=== PATIENT | female | born 1940 | race Caucasian/White ===

== ENCOUNTER 2016-05-10 12:07 | Inpatient (IN) | payer MEDICARE, BC ==
[~2016-05-10] VITALS: Ht 160 cm; Wt 49.9 kg
[2016-05-10] MEDS ORDERED: IV NS 0.9% 1,000 ML BAG IV ONE (12:30)
[2016-05-10] MEDS ORDERED: MORPHINE SULFATE INJ 2 MG/ML DISP.SYRIN IV ONE ×2 (12:30→13:00)
[2016-05-10] MEDS ORDERED: ONDANSETRON HCL/PF 4 MG/2 ML VIAL IVP ONE (12:30)
[2016-05-10] MEDS ORDERED: MORPHINE SULFATE INJ 2 MG/ML DISP.SYRIN ONE (12:53)
[2016-05-10 12:54] LABS: BASOPHILS # (AUTO) 0.1 /CMM (0.0-0.2); BASOPHILS % (AUTO) 0.7 % (0.0-2.0); DIFF TOTAL % 100 %; EOSINOPHILS # (AUTO) 0.1 /CMM (0.0-0.7); EOSINOPHILS % (AUTO) 0.6 % (0.0-6.0); HEMATOCRIT 32 % (33-45); HEMOGLOBIN 10.4 g/dL (11.5-14.8); LYMPHOCYTES # (AUTO) 1.7 /CMM (0.8-4.8); LYMPHOCYTES % (AUTO) 18.8 % (20.0-44.0); MEAN CORPUSCULAR HEMOGLOBIN 34 PG (26.0-33.0); MEAN CORPUSCULAR HGB CONC 32 g/dl (31.0-36.0); MEAN CORPUSCULAR VOLUME 105 fL (82-100); MONOCYTES # (AUTO) 0.4 /CMM (0.1-1.30); MONOCYTES % (AUTO) 3.9 % (2.0-12.0); NEUTROPHILS # (AUTO) 6.8 /CMM (1.8-8.9); PLATELET COUNT (AUTO) 179 /CMM (150-450); RED BLOOD CELL COUNT(AUTO) 3.03 MIL/uL (4.0-5.2); WHITE BLOOD COUNT (AUTO) 9.1 K/uL (4.3-11.0)
[2016-05-10] MEDS ORDERED: ONDANSETRON HCL/PF 4 MG/2 ML VIAL ONE ×2 (12:54→13:39)
[2016-05-10] MEDS ORDERED: IV SET PRIMARY 1 EA INFUS.SET MC ONE (12:54)
[2016-05-10] MEDS ORDERED: IV NS 0.9% 1,000 ML ONE (12:54)
[2016-05-10] MEDS ORDERED: MORPHINE SULFATE INJ 4 MG/ML DISP.SYRIN ONE (12:54)
[2016-05-10 13:04] LABS: ANION GAP 12 (5-14); CALCIUM, SERUM 9.4 mg/dL (8.5-10.1); CARBON DIOXIDE 30 mmol/L (21-32); CHLORIDE 94 mmol/L (98-107); CREATININE 0.6 mg/dL (0.6-1.3); GLUCOSE 108 mg/dL (74-106); POTASSIUM 3.2 mmol/L (3.5-5.1); SODIUM SERUM 133 mmol/L (136-145); UREA NITROGEN, BLOOD 10 mg/dL (7-18)
[2016-05-10 13:08] LABS: INR 0.97 (0.87-1.13); PROTHROMBIN TIME 10.2 SECS (9.5-12.7)
[2016-05-10 13:09] LABS: ALANINE AMINOTRANSFERASE 23 U/L (12-78); ALBUMIN 3.6 g/dL (3.4-5.0); ASPARTATE AMINOTRANSFERASE 20 U/L (15-37); BILIRUBIN,DIRECT 0.1 mg/dL (0.0-0.2); BILIRUBIN,TOTAL 0.3 mg/dL (0.2-1.0); INDIRECT BILIRUBIN 0.2 mg/dL (0.0-1.1); TOTAL PROTEIN, SERUM 6.6 g/dL (6.4-8.2)
[2016-05-10 13:11] LABS: TROPONIN I < 0.017 ng/mL (0.00-0.056)
[2016-05-10] MEDS ORDERED: CHLO15MO2 MM (16:57)
[2016-05-10] MEDS ORDERED: RANI300T4 PO (16:57)
[2016-05-10] MEDS ORDERED: CLON1TAB4 PO (16:57)
[2016-05-10] MEDS ORDERED: LISI10TA5 PO (16:57)
[2016-05-10] MEDS ORDERED: OXYC5CAP3 PO (16:57)
[2016-05-10] MEDS ORDERED: MORP15TA PO (16:57)
[2016-05-10] MEDS ORDERED: OMEP20TA20 PO (16:57)
[2016-05-10] MEDS ORDERED: HYDR-3024 PO (16:57)
[2016-05-10] MEDS ORDERED: ALPR1TAB7 PO (16:57)
[2016-05-10] MEDS ORDERED: GEMC200V IV (16:57)
[2016-05-10] MEDS ORDERED: ACID1TAB12 PO (16:57)
[2016-05-10] MEDS ORDERED: LACT10SO7 PO (16:57)
[2016-05-10] MEDS ORDERED: LUBI24CA7 PO (16:57)
[2016-05-10] MEDS ORDERED: CARI350T PO (16:57)
[2016-05-10] MEDS ORDERED: METO-295 PO (16:57)
[2016-05-10] MEDS ORDERED: LEVO75TA7 PO (16:57)
[2016-05-10 18:33] VITALS: BP 145/75
[2016-05-10] MEDS ORDERED: Z GUARD REMEDY 2 OZ OINT TP PRN (19:30)
[2016-05-10] MEDS ORDERED: ACETAMINOPHEN 325 MG TABLET PO PRN (19:30)
[2016-05-10] MEDS ORDERED: MAG HYDROX/AL HYDROX/SIMETH 30 ML UDC PO PRN (19:30)
[2016-05-10] MEDS ORDERED: hydrOXYzine 10 MG TABLET PO PRN (19:30)
[2016-05-10] MEDS ORDERED: oxyCODONE IR immediate release 5 MG CAPSULE PO PRN (19:30)
[2016-05-10] MEDS ORDERED: CARISOPRODOL 350 MG TABLET PO PRN (19:30)
[2016-05-10] MEDS ORDERED: ZOLPIDEM TARTRATE 5 MG TABLET PO PRN (19:30)
[2016-05-10 19:56] VITALS: BP 144/75
[2016-05-10] MEDS ORDERED: PHEN16.226 PO (19:57)
[2016-05-10] MEDS ORDERED: CHLORHEXIDINE GLUCONATE 15 ML UDC MM PRN (20:00)
[2016-05-10] MEDS: MORPHINE SULFATE IR 15 MG TABLET PO PRN (20:16)
[2016-05-10] MEDS ORDERED: POTASSIUM CHLORIDE 20 MEQ TAB.PRT.SR PO ONE ×2 (22:24→22:30)
[2016-05-10] MEDS: ONDANSETRON HCL/PF 4 MG/2 ML VIAL IVP PRN (22:28)
[2016-05-10] MEDS: clonazePAM 1 MG TABLET PO PRN (22:39)
[2016-05-10] MEDS: HYDROCODONE/APAP 5/325MG 1 EACH TABLET PO PRN (23:54)
[2016-05-11] VITALS (13 sets, daily range): BP systolic 63–150; BP diastolic 42–75
[2016-05-11] MEDS: LEVOTHYROXINE SODIUM 75 MCG TABLET PO SCH (08:07)
[2016-05-11] MEDS: ACIDOPHILUS/BULGARICUS 1 EACH TAB.CHEW PO SCH ×2 (08:07→17:00)
[2016-05-11] MEDS: PANTOPRAZOLE 40 MG TABLET.DR PO SCH (08:07)
[2016-05-11] MEDS: METOCLOPRAMIDE HCL 10 MG TABLET PO SCH ×4 (08:07→17:00)
[2016-05-11] MEDS: LISINOPRIL (10MG) 10 MG TABLET PO SCH (08:20)
[2016-05-11 08:58] LABS: BASOPHILS % (AUTO) 0.2 % (0.0-2.0); DIFF TOTAL % 100 %; EOSINOPHILS # (AUTO) 0.1 /CMM (0.0-0.7); HEMATOCRIT 29 % (33-45); HEMOGLOBIN 9.6 g/dL (11.5-14.8); LYMPHOCYTES % (AUTO) 56.1 % (20.0-44.0); MEAN CORPUSCULAR HEMOGLOBIN 36 PG (26.0-33.0); MEAN CORPUSCULAR HGB CONC 34 g/dl (31.0-36.0); MEAN CORPUSCULAR VOLUME 106 fL (82-100); MONOCYTES % (AUTO) 13.5 % (2.0-12.0); NEUTROPHILS % (AUTO) 28.2 % (43.0-81.0); PLATELET COUNT (AUTO) 129 /CMM (150-450); WHITE BLOOD COUNT (AUTO) 7.2 K/uL (4.3-11.0)
[2016-05-11] MEDS ORDERED: Medication Not On Formulary EA (Lubiprostone (Amitiza) 24 MCG) PO SCH (09:00)
[2016-05-11 09:25] LABS: EOSINOPHILS % (MANUAL) 2 % (0-4); LYMPHOCYTES % (MANUAL) 48 % (16-48); PLATELET ESTIMATE DECREASED; POIKILOCYTOSIS 1+
[2016-05-11 09:54] LABS: CALCIUM, SERUM 9.1 mg/dL (8.5-10.1); CREATININE 0.7 mg/dL (0.6-1.3); POTASSIUM 4.2 mmol/L (3.5-5.1)
[2016-05-11] MEDS: clonazePAM 1 MG TABLET PO PRN (11:27)
[2016-05-11] MEDS ORDERED: IV SET PRIMARY PUMP SET 1 EA INFUS.SET MC ONE (12:35)
[2016-05-11] MEDS ORDERED: SECONDARY IV SET 1 EA INFUS.SET MC ONE (12:35)
[2016-05-11] MEDS: IV NS 0.9% 1,000 ML IV PRN (12:40)
[2016-05-11] MEDS: Magnesium 1GM/D5W 100ML PREMIX 100 ML IV SCH ×3 (12:44→15:55)
[2016-05-11] MEDS ORDERED: FENTANYL PF 100MCG/2ML AMPUL ONE (16:59)
[2016-05-11] MEDS ORDERED: ROCURONIUM BROMIDE 50 MG/5 ML ONE (17:00)
[2016-05-11] MEDS ORDERED: MIDAZOLAM HCL 2 MG/2ML VIAL ONE (17:00)
[2016-05-11] MEDS ORDERED: BUPIVACAINE 0.5 % PF 150 MG/30 ML VIAL ONE (19:05)
[2016-05-11] MEDS ORDERED: BACITRACIN 50000 UNITS/VIAL ONE (19:05)
[2016-05-11] MEDS ORDERED: ANESTHESIA TRAY IN PYXIS 1 EA TRAY MC ONE (19:05)
[2016-05-11] MEDS: MORPHINE SULFATE IR 15 MG TABLET PO PRN (20:40)
[2016-05-11] MEDS ORDERED: SET RED CAP 1 EA INFUS.SET MC ONE (23:07)
[2016-05-11] MEDS ORDERED: IV NS 0.9% 1,000 ML ONE (23:07)
[2016-05-11] MEDS ORDERED: IV NS 0.9% 500 ML IV ONE (23:30)
[2016-05-11 23:40] LABS: DIFF TOTAL % 100 %; EOSINOPHILS # (AUTO) 0.1 /CMM (0.0-0.7); EOSINOPHILS % (AUTO) 0.5 % (0.0-6.0); HEMATOCRIT 21 % (33-45); HEMOGLOBIN 7.2 g/dL (11.5-14.8); LYMPHOCYTES # (AUTO) 1.2 /CMM (0.8-4.8); LYMPHOCYTES % (AUTO) 10.2 % (20.0-44.0); MEAN CORPUSCULAR HEMOGLOBIN 35 PG (26.0-33.0); MEAN CORPUSCULAR HGB CONC 33 g/dl (31.0-36.0); MEAN CORPUSCULAR VOLUME 106 fL (82-100); MONOCYTES # (AUTO) 1.5 /CMM (0.1-1.30); MONOCYTES % (AUTO) 12.2 % (2.0-12.0); NEUTROPHILS # (AUTO) 9.4 /CMM (1.8-8.9); NEUTROPHILS % (AUTO) 77.1 % (43.0-81.0); PLATELET COUNT (AUTO) 92 /CMM (150-450); RED BLOOD CELL COUNT(AUTO) 2.03 MIL/uL (4.0-5.2); WHITE BLOOD COUNT (AUTO) 12.2 K/uL (4.3-11.0)
[2016-05-11 23:48] LABS: CALCIUM, SERUM 7.7 mg/dL (8.5-10.1); CREATININE 0.8 mg/dL (0.6-1.3); POTASSIUM 4.4 mmol/L (3.5-5.1)
[2016-05-12] VITALS (23 sets, daily range): BP systolic 86–139; BP diastolic 50–69
[2016-05-12] MEDS ORDERED: SECONDARY IV SET 1 EA INFUS.SET MC ONE ×2 (00:38→10:46)
[2016-05-12] MEDS: ANCEF 1 GM/50 ML D5W IV SCH ×6 (00:42→17:30)
[2016-05-12 00:45] LABS: BAND % (MANUAL) 6 % (0.0-5.0)
[2016-05-12 00:46] LABS: LYMPHOCYTES % (MANUAL) 10 % (16-48); PLATELET ESTIMATE DECREASED
[2016-05-12] MEDS ORDERED: IV NS 0.9% 250 ML IV ONE (00:58)
[2016-05-12] MEDS ORDERED: BLOOD IV SET 1 EA INFUS.SET MC ONE (00:58)
[2016-05-12 08:40] LABS: BASOPHILS % (AUTO) 0.1 % (0.0-2.0); DIFF TOTAL % 100 %; EOSINOPHILS % (AUTO) 0.1 % (0.0-6.0); HEMATOCRIT 28 % (33-45); HEMOGLOBIN 9.7 g/dL (11.5-14.8); LYMPHOCYTES # (AUTO) 2.7 /CMM (0.8-4.8); LYMPHOCYTES % (AUTO) 28.5 % (20.0-44.0); MEAN CORPUSCULAR HEMOGLOBIN 34 PG (26.0-33.0); MEAN CORPUSCULAR HGB CONC 35 g/dl (31.0-36.0); MEAN CORPUSCULAR VOLUME 97 fL (82-100); MONOCYTES # (AUTO) 1.3 /CMM (0.1-1.30); MONOCYTES % (AUTO) 14.2 % (2.0-12.0); NEUTROPHILS # (AUTO) 5.4 /CMM (1.8-8.9); NEUTROPHILS % (AUTO) 57.1 % (43.0-81.0); PLATELET COUNT (AUTO) 72 /CMM (150-450); RED BLOOD CELL COUNT(AUTO) 2.89 MIL/uL (4.0-5.2); WHITE BLOOD COUNT (AUTO) 9.4 K/uL (4.3-11.0)
[2016-05-12] MEDS: LEVOTHYROXINE SODIUM 75 MCG TABLET PO SCH (08:41)
[2016-05-12] MEDS: PANTOPRAZOLE 40 MG TABLET.DR PO SCH (08:41)
[2016-05-12] MEDS: METOCLOPRAMIDE HCL 10 MG TABLET PO SCH ×3 (08:42→17:30)
[2016-05-12] MEDS: ACIDOPHILUS/BULGARICUS 1 EACH TAB.CHEW PO SCH ×2 (08:42→17:30)
[2016-05-12] MEDS: LISINOPRIL (10MG) 10 MG TABLET PO SCH (08:44)
[2016-05-12 09:10] LABS: CALCIUM, SERUM 7.6 mg/dL (8.5-10.1); CREATININE 0.9 mg/dL (0.6-1.3); PHOSPHORUS 4.2 mg/dL (2.5-4.9); POTASSIUM 4.2 mmol/L (3.5-5.1)
[2016-05-12 09:43] LABS: EOSINOPHILS % (MANUAL) 1 % (0-4); LYMPHOCYTES % (MANUAL) 25 % (16-48); PLATELET ESTIMATE DECREASED
[2016-05-12 09:44] LABS: ANISOCYTOSIS 1+; POLYCHROMASIA 1+; SPHEROCYTES 1+
[2016-05-12] MEDS: Magnesium 1GM/D5W 100ML PREMIX 100 ML IV SCH ×2 (10:49→12:16)
[2016-05-12 16:32] LABS: KETONES,URINE NEGATIVE (NEGATIVE); LEUKOCYTE ESTERASE ,URINE NEGATIVE (NEGATIVE); PH,URINE 5.5 (5.0-8.0)
[2016-05-12 16:36] LABS: ADD UA MICROSCOPIC YES
[2016-05-12 16:43] LABS: ADD URINE CULTURE NO
[2016-05-12 16:44] LABS: COARSE GRANULAR CASTS,URINE Few /LPF (None Seen); HYALINE CASTS, URINE Few /LPF (None Seen); MUCUS,URINE Few /LPF (None Seen)
[2016-05-12] MEDS: MORPHINE SULFATE IR 15 MG TABLET PO PRN ×2 (17:30→23:06)
[2016-05-12] MEDS: ALPRAZOLAM 1 MG TABLET PO PRN (23:07)
[2016-05-13] MEDS: IV NS 0.9% 1,000 ML IV PRN ×2 (05:29→17:44)
[2016-05-13 07:45] LABS: BASOPHILS % (AUTO) 0.3 % (0.0-2.0); DIFF TOTAL % 100 %; EOSINOPHILS # (AUTO) 0.2 /CMM (0.0-0.7); EOSINOPHILS % (AUTO) 1.9 % (0.0-6.0); HEMATOCRIT 24 % (33-45); HEMOGLOBIN 8.1 g/dL (11.5-14.8); LYMPHOCYTES % (AUTO) 21.2 % (20.0-44.0); MEAN CORPUSCULAR HEMOGLOBIN 33 PG (26.0-33.0); MEAN CORPUSCULAR HGB CONC 34 g/dl (31.0-36.0); MEAN CORPUSCULAR VOLUME 98 fL (82-100); MONOCYTES # (AUTO) 1.9 /CMM (0.1-1.30); MONOCYTES % (AUTO) 20.8 % (2.0-12.0); NEUTROPHILS # (AUTO) 5.2 /CMM (1.8-8.9); NEUTROPHILS % (AUTO) 55.8 % (43.0-81.0); PLATELET COUNT (AUTO) 68 /CMM (150-450); RED BLOOD CELL COUNT(AUTO) 2.46 MIL/uL (4.0-5.2); WHITE BLOOD COUNT (AUTO) 9.3 K/uL (4.3-11.0)
[2016-05-13 08:00] VITALS: BP 139/69
[2016-05-13 08:04] LABS: CALCIUM, SERUM 7.8 mg/dL (8.5-10.1); CREATININE 0.6 mg/dL (0.6-1.3); POTASSIUM 3.8 mmol/L (3.5-5.1)
[2016-05-13 08:42] LABS: ANISOCYTOSIS 1+; EOSINOPHILS % (MANUAL) 7 % (0-4); LYMPHOCYTES % (MANUAL) 26 % (16-48); PLATELET ESTIMATE DECREASED
[2016-05-13 08:43] LABS: BURR CELLS FEW; POIKILOCYTOSIS 1+; SPHEROCYTES 1+
[2016-05-13 08:44] LABS: HYPOCHROMASIA 1+; TARGET CELLS OCC
[2016-05-13] MEDS: PANTOPRAZOLE 40 MG TABLET.DR PO SCH (09:01)
[2016-05-13] MEDS: ACIDOPHILUS/BULGARICUS 1 EACH TAB.CHEW PO SCH ×2 (09:01→17:14)
[2016-05-13] MEDS: LISINOPRIL (10MG) 10 MG TABLET PO SCH (09:01)
[2016-05-13] MEDS: METOCLOPRAMIDE HCL 10 MG TABLET PO SCH ×3 (09:02→17:14)
[2016-05-13] MEDS: LEVOTHYROXINE SODIUM 75 MCG TABLET PO SCH (09:02)
[2016-05-13] MEDS: MORPHINE SULFATE IR 15 MG TABLET PO PRN ×3 (09:02→23:32)
[2016-05-13] MEDS: ALPRAZOLAM 1 MG TABLET PO PRN ×2 (09:03→15:57)
[2016-05-13] MEDS ORDERED: SECONDARY IV SET 1 EA INFUS.SET MC ONE (11:41)
[2016-05-13] MEDS: Magnesium 1GM/D5W 100ML PREMIX 100 ML IV SCH ×2 (11:46→12:59)
[2016-05-13 17:00] VITALS: BP 142/75
[2016-05-13 19:00] VITALS: BP 138/70
[2016-05-13 20:00] VITALS: BP 138/70
[2016-05-13] MEDS: ONDANSETRON HCL/PF 4 MG/2 ML VIAL IVP PRN (22:20)
[2016-05-14] MEDS: ALPRAZOLAM 1 MG TABLET PO PRN ×2 (00:09→21:28)
[2016-05-14] MEDS: IV NS 0.9% 1,000 ML IV PRN ×2 (06:57→17:38)
[2016-05-14 08:00] VITALS: BP 147/71
[2016-05-14] MEDS: POLYETHYLENE GLYCOL 3350 17 GM POWD.PACK PO SCH (08:16)
[2016-05-14] MEDS: ACIDOPHILUS/BULGARICUS 1 EACH TAB.CHEW PO SCH ×2 (08:16→16:22)
[2016-05-14] MEDS: LISINOPRIL (10MG) 10 MG TABLET PO SCH (08:17)
[2016-05-14] MEDS: PANTOPRAZOLE 40 MG TABLET.DR PO SCH (08:17)
[2016-05-14] MEDS: METOCLOPRAMIDE HCL 10 MG TABLET PO SCH ×3 (08:17→16:26)
[2016-05-14] MEDS: LEVOTHYROXINE SODIUM 75 MCG TABLET PO SCH (08:17)
[2016-05-14] MEDS: clonazePAM 1 MG TABLET PO PRN ×2 (08:50→16:22)
[2016-05-14] MEDS: MORPHINE SULFATE IR 15 MG TABLET PO PRN ×2 (08:51→21:28)
[2016-05-14 16:07] VITALS: BP 150/71
[2016-05-14] MEDS: ONDANSETRON HCL/PF 4 MG/2 ML VIAL IVP PRN ×2 (16:22→21:39)
[2016-05-14 20:00] VITALS: BP 149/74
[2016-05-14] MEDS: BISACODYL (5 MG) 5 MG TABLET.DR PO PRN (21:28)
[2016-05-15] MEDS: clonazePAM 1 MG TABLET PO PRN ×2 (00:01→15:00)
[2016-05-15] MEDS: IV NS 0.9% 1,000 ML IV PRN (05:41)
[2016-05-15 08:00] VITALS: BP 142/68
[2016-05-15] MEDS: LISINOPRIL (10MG) 10 MG TABLET PO SCH (09:07)
[2016-05-15] MEDS: ALPRAZOLAM 1 MG TABLET PO PRN ×2 (09:08→21:15)
[2016-05-15] MEDS: LEVOTHYROXINE SODIUM 75 MCG TABLET PO SCH (09:08)
[2016-05-15] MEDS: POLYETHYLENE GLYCOL 3350 17 GM POWD.PACK PO SCH (09:08)
[2016-05-15] MEDS: METOCLOPRAMIDE HCL 10 MG TABLET PO SCH ×3 (09:08→17:21)
[2016-05-15] MEDS: ACIDOPHILUS/BULGARICUS 1 EACH TAB.CHEW PO SCH ×2 (09:09→17:20)
[2016-05-15] MEDS: PANTOPRAZOLE 40 MG TABLET.DR PO SCH (09:09)
[2016-05-15] MEDS: HYDROCODONE/APAP 5/325MG 1 EACH TABLET PO PRN (09:12)
[2016-05-15 12:43] LABS: BASOPHILS % (AUTO) 0.2 % (0.0-2.0); DIFF TOTAL % 100 %; EOSINOPHILS # (AUTO) 0.2 /CMM (0.0-0.7); EOSINOPHILS % (AUTO) 2.3 % (0.0-6.0); HEMATOCRIT 23 % (33-45); HEMOGLOBIN 7.6 g/dL (11.5-14.8); LYMPHOCYTES # (AUTO) 1.7 /CMM (0.8-4.8); LYMPHOCYTES % (AUTO) 19.2 % (20.0-44.0); MEAN CORPUSCULAR HEMOGLOBIN 33 PG (26.0-33.0); MEAN CORPUSCULAR HGB CONC 33 g/dl (31.0-36.0); MEAN CORPUSCULAR VOLUME 99 fL (82-100); MONOCYTES # (AUTO) 1.3 /CMM (0.1-1.30); MONOCYTES % (AUTO) 15.5 % (2.0-12.0); NEUTROPHILS # (AUTO) 5.5 /CMM (1.8-8.9); NEUTROPHILS % (AUTO) 62.8 % (43.0-81.0); PLATELET COUNT (AUTO) 126 /CMM (150-450); RED BLOOD CELL COUNT(AUTO) 2.32 MIL/uL (4.0-5.2); WHITE BLOOD COUNT (AUTO) 8.7 K/uL (4.3-11.0)
[2016-05-15] MEDS: MORPHINE SULFATE IR 15 MG TABLET PO PRN ×2 (15:00→20:40)
[2016-05-15 16:00] VITALS: BP 145/74
[2016-05-15 20:00] VITALS: BP 174/91
[2016-05-15] MEDS: BISACODYL (5 MG) 5 MG TABLET.DR PO PRN (20:40)
[2016-05-15 22:39] VITALS: BP 174/91
[2016-05-16] VITALS (7 sets, daily range): BP systolic 137–147; BP diastolic 70–82
[2016-05-16] MEDS: IV NS 0.9% 1,000 ML IV PRN ×2 (00:15→12:11)
[2016-05-16] MEDS: HYDROCODONE/APAP 5/325MG 1 EACH TABLET PO PRN ×4 (01:56→22:05)
[2016-05-16] MEDS: LEVOTHYROXINE SODIUM 75 MCG TABLET PO SCH (08:50)
[2016-05-16] MEDS: METOCLOPRAMIDE HCL 10 MG TABLET PO SCH ×3 (08:50→17:30)
[2016-05-16] MEDS: PANTOPRAZOLE 40 MG TABLET.DR PO SCH (08:50)
[2016-05-16] MEDS: ACIDOPHILUS/BULGARICUS 1 EACH TAB.CHEW PO SCH ×2 (08:50→17:30)
[2016-05-16] MEDS: LISINOPRIL (10MG) 10 MG TABLET PO SCH (08:51)
[2016-05-16] MEDS: ONDANSETRON HCL/PF 4 MG/2 ML VIAL IVP PRN (08:55)
[2016-05-16] MEDS: POLYETHYLENE GLYCOL 3350 17 GM POWD.PACK PO SCH (09:00)
[2016-05-16] MEDS: clonazePAM 1 MG TABLET PO PRN ×2 (09:03→17:30)
[2016-05-16 14:54] LABS: BASOPHILS % (AUTO) 0.1 % (0.0-2.0); DIFF TOTAL % 100 %; EOSINOPHILS # (AUTO) 0.2 /CMM (0.0-0.7); EOSINOPHILS % (AUTO) 1.5 % (0.0-6.0); HEMATOCRIT 25 % (33-45); HEMOGLOBIN 8.2 g/dL (11.5-14.8); LYMPHOCYTES % (AUTO) 19.9 % (20.0-44.0); MEAN CORPUSCULAR HEMOGLOBIN 33 PG (26.0-33.0); MEAN CORPUSCULAR HGB CONC 33 g/dl (31.0-36.0); MEAN CORPUSCULAR VOLUME 99 fL (82-100); MONOCYTES # (AUTO) 1.3 /CMM (0.1-1.30); MONOCYTES % (AUTO) 12.8 % (2.0-12.0); NEUTROPHILS # (AUTO) 6.6 /CMM (1.8-8.9); NEUTROPHILS % (AUTO) 65.7 % (43.0-81.0); PLATELET COUNT (AUTO) 191 /CMM (150-450); RED BLOOD CELL COUNT(AUTO) 2.48 MIL/uL (4.0-5.2); WHITE BLOOD COUNT (AUTO) 10.1 K/uL (4.3-11.0)
[2016-05-16] MEDS ORDERED: POLYVINYL ALCOHOL 15 ML BOTTLE EACHEYE PRN (17:00)
[2016-05-16] MEDS ORDERED: IV NS 0.9% 250 ML IV ONE (17:26)
[2016-05-16] MEDS ORDERED: BLOOD IV SET 1 EA INFUS.SET MC ONE (17:26)
[2016-05-16] MEDS: ALPRAZOLAM 1 MG TABLET PO PRN (21:26)
[2016-05-17] VITALS (7 sets, daily range): BP systolic 138–157; BP diastolic 71–80
[2016-05-17 07:49] LABS: BASOPHILS % (AUTO) 0.3 % (0.0-2.0); DIFF TOTAL % 100 %; EOSINOPHILS # (AUTO) 0.4 /CMM (0.0-0.7); EOSINOPHILS % (AUTO) 4.8 % (0.0-6.0); HEMATOCRIT 34 % (33-45); HEMOGLOBIN 11.4 g/dL (11.5-14.8); LYMPHOCYTES # (AUTO) 2.2 /CMM (0.8-4.8); LYMPHOCYTES % (AUTO) 25.7 % (20.0-44.0); MEAN CORPUSCULAR HEMOGLOBIN 31 PG (26.0-33.0); MEAN CORPUSCULAR HGB CONC 34 g/dl (31.0-36.0); MEAN CORPUSCULAR VOLUME 92 fL (82-100); MONOCYTES # (AUTO) 1.6 /CMM (0.1-1.30); MONOCYTES % (AUTO) 18.9 % (2.0-12.0); NEUTROPHILS # (AUTO) 4.4 /CMM (1.8-8.9); NEUTROPHILS % (AUTO) 50.3 % (43.0-81.0); PLATELET COUNT (AUTO) 209 /CMM (150-450); RED BLOOD CELL COUNT(AUTO) 3.67 MIL/uL (4.0-5.2); WHITE BLOOD COUNT (AUTO) 8.7 K/uL (4.3-11.0)
[2016-05-17] MEDS: POLYETHYLENE GLYCOL 3350 17 GM POWD.PACK PO SCH (09:00)
[2016-05-17 09:30] LABS: EOSINOPHILS % (MANUAL) 3 % (0-4); LYMPHOCYTES % (MANUAL) 23 % (16-48); PLATELET ESTIMATE ADEQUATE
[2016-05-17 09:31] LABS: ANISOCYTOSIS 1+; BURR CELLS 1+
[2016-05-17] MEDS: METOCLOPRAMIDE HCL 10 MG TABLET PO SCH ×2 (09:59→12:33)
[2016-05-17] MEDS: PANTOPRAZOLE 40 MG TABLET.DR PO SCH (09:59)
[2016-05-17] MEDS: ACIDOPHILUS/BULGARICUS 1 EACH TAB.CHEW PO SCH (09:59)
[2016-05-17] MEDS: LEVOTHYROXINE SODIUM 75 MCG TABLET PO SCH (09:59)
[2016-05-17] MEDS: clonazePAM 1 MG TABLET PO PRN (09:59)
[2016-05-17] MEDS: MORPHINE SULFATE IR 15 MG TABLET PO PRN (10:00)
[2016-05-17] MEDS: LISINOPRIL (10MG) 10 MG TABLET PO SCH (10:02)
== END 2016-05-17 13:15 | DRG 470 ==
LOC: ER 12:09 → MED 17:34
PROVIDERS: ADMIT Internal Medicine; ATTEND Internal Medicine
PROC: 0SRR0J9 Replacement of Right Hip Joint, Femoral Surface with Synthetic Substitute, Cemented, Open Approach (ICD-10-PCS; principal; 2016-05-11 17:35)
PROC: 30233N1 Transfusion of Nonautologous Red Blood Cells into Peripheral Vein, Percutaneous Approach (ICD-10-PCS; 2016-05-12)
DX: S72.031A Displaced midcervical fracture of right femur, initial encounter for closed fracture (principal); E87.1 Hypo-osmolality and hyponatremia; C56.9 Malignant neoplasm of unspecified ovary; C79.9 Secondary malignant neoplasm of unspecified site; W01.10XA Fall on same level from slipping, tripping and stumbling with subsequent striking against unspecified object, initial encounter; Y92.009 Unspecified place in unspecified non-institutional (private) residence as the place of occurrence of the external cause; I10 Essential (primary) hypertension; Z85.43 Personal history of malignant neoplasm of ovary; E03.9 Hypothyroidism, unspecified; E83.42 Hypomagnesemia; K21.9 Gastro-esophageal reflux disease without esophagitis; E87.6 Hypokalemia; E78.5 Hyperlipidemia, unspecified; D64.9 Anemia, unspecified; Y93.9 Activity, unspecified; M19.90 Unspecified osteoarthritis, unspecified site; I70.90 Unspecified atherosclerosis; Z79.899 Other long term (current) drug therapy; S01.111A Laceration without foreign body of right eyelid and periocular area, initial encounter
CPT/HCPCS: 36415; 70450-TC; 71010-TC; 73501; 73510-TC; 73700-TC; 80048-TC; 80061-TC; 80076-TC; 81000-TC; 82962-TC; 83735-TC; 83880; 84100-TC; 84484-TC; 85025-TC; 85730-TC; 86850-TC; 86921-TC; 87086-TC; 88305-TC; 88311-TC; 94799-TC; 97001-TC; 97110-TC; 97116-TC; 97530-TC; A4217; A4606; A6209; A6253; A6402; C1713; J0690; J2250; J2270; J2405; J3010; J3475; J3490; J7030; J7040; J7050; J7060; J8597; P9016-BL; Z7610

== ENCOUNTER 2016-05-17 15:00 | Emergency (ER) | payer MEDICARE, BC ==
[~2016-05-17] VITALS: Ht 170.2 cm; Wt 63.0 kg
[~2016-05-17 15:00] MED LIST: ACID1TAB12 PO; ALPR1TAB7 PO; CARI350T PO; CHLO15MO2 MM; CLON1TAB4 PO; GEMC200V IV; HYDR-3024 PO; LACT10SO7 PO; LEVO75TA7 PO; LISI10TA5 PO; LUBI24CA7 PO; METO-295 PO; MORP15TA PO; OMEP20TA20 PO; OXYC5CAP3 PO; PHEN16.226 PO; RANI300T4 PO
[2016-05-17] MEDS ORDERED: METOPROLOL TARTRATE 50 MG TABLET ONE ×2 (15:13→17:20)
[2016-05-17] MEDS: METOPROLOL TARTRATE 50 MG TABLET PO ONE ×2 (15:18→17:47)
[2016-05-17] MEDS ORDERED: CLONIDINE HCL 0.1 MG TABLET ONE (16:37)
[2016-05-17] MEDS: CLONIDINE HCL 0.1 MG TABLET PO ONE (16:42)
[2016-05-17 18:00] VITALS: BP 154/85
== END 2016-05-17 18:14 | disposition home or self-care (01) ==
LOC: ER 15:04
DX: I10 Essential (primary) hypertension (principal); Z88.5 Allergy status to narcotic agent
CPT/HCPCS: A4606; Z7610